=== PATIENT | female | born 1990 | race Caucasian/White ===

== ENCOUNTER 2018-12-27 07:20 | Inpatient (IN) | payer OTHER, SELFPAY ==
[2018-12-27 07:52] VITALS: BMI 27.8
[2018-12-27] MEDS: Lactated Ringers 500 ML 999 ML IV (08:20)
[2018-12-27 08:27] LABS: Absolute Neutrophil Count 8.8 X10^3/uL (2.0-7.7); Basophil# 0.02 X10^3/uL; Basophil% 0.2 % (0-1); Eosinophil# 0.06 X10^3/uL; Eosinophils% 0.5 % (0-5); Hematocrit 33.8 % (37-47); Hemoglobin 11.8 g/dL (12.0-15.0); Lymphocyte % 14.2 % (19-41); Mean Corp Hgb Conc 34.9 g/dL (32-36); Mean Corpuscular Hgb 32.1 pg (27.0-32.0); Mean Corpuscular Volume 91.8 fL (81-99); Mean Platelet Vol. 11.2 fl (6.2-12.0); Monocyte# 0.72 X10^3/uL; Monocyte% 6.4 % (0-10); NRBC Flagged by Analyzer 0 % (0-5); Neutrophil # 8.78 X10^3/uL (2.7-7.7); Neutrophil % 78.3 % (47-70); Platelet Count 156 K/mm3 (150-450); RBC Distribution Width CV 11.3 % (11.6-14.6); Red Blood Count 3.68 M/mm3 (4.2-5.4); White Blood Count 11.2 K/mm3 (4.4-11.0)
--- NOTE | 2018-12-27 08:27 | PCM.HP.OB ---
History Date of Admission: 12/27/18 Final JAY: 12/31/18 Gestational age: 39 Weeks and 3 Days History of this : This is a 28 year-old, G [], P [], at weeks gestational age. Medical History: Medical History (Last Updated 12/27/18 @ 08:28 by Waylon Da Silva) Anemia D64.9 H/O tooth extraction K08.409 Allergies aripiprazole [From Abilify] Allergy (Verified 12/27/18 07:55) Rash Smoking Status: Never smoker Alcohol: None Number of Fetus(es): 1 NST - FHR Rate Baby A Baseline: 140 Variability:: Moderate Accelerations:: 15 x 15 Decelerations:: None NST Reactive:: Yes Uterine Activity:: Q 2 minutes History Past Pregnancies: Past Pregnancies Delivery Date Name GA/Weeks Outcome Route Weight Gender Labor Length Anesthesia Delivery Location Provider FOB Labs: see [facility] prenatals Physical Exam General: Alert, Oriented x3 Abdomen: Soft, Non Tender, Non-Distended, Gravid Neurological: Cranial nerves II-XII grossly intact SAUSAGE GRINDER: Normal external genitalia Estimated gestational size: Appropriate for gestational size Presentation: Cephalic Cervix Dilation (cm): 4 Station: -2 Effacement (%): 80 Assessment/Plan This is a 28 year-old, G 1, P 0, at 39&3 weeks gestational age. ADmit to L&D Pain - epidural Expectant management GBS negative EFX - less than 4500g, patient with adequate pelvis Routine care
[2018-12-27] MEDS: fentaNYL-bupivacaine (epidural) 100 ML BAG EPIDURAL ×2 (08:49→13:36)
[2018-12-27] MEDS: Ondansetron 4 MG/2 ML Vial IV (09:28)
[2018-12-27] MEDS: Lactated Ringers 1,000 ML 50 ML IV ×2 (09:31→13:34)
[2018-12-27] MEDS: Oxytocin 30 units/NS 500 ml 30 UNITS/500 ML IV.SOLN 334 UNITS IV (16:02)
[2018-12-27] MEDS: Methylergonovine 0.2 MG/ML Ampul IM (16:08)
[2018-12-27] MEDS: miSOPROStol 200 MCG Tablet 1000 MCG RECTAL (16:11)
[2018-12-27] MEDS: Acetaminophen 500 MG Tablet 1000 MG PO (16:58)
--- NOTE | 2018-12-27 18:03 | PCM.OPRPT ---
Vaginal Delivery Maternal Presentation: Active Labor, Spontaneous Rupture of Membranes Amniotic Membrane Rupture Type: Spontaneous at home Amniotic Fluid Description: Clear Final JAY: 12/31/18 Gestational age: 39 Weeks and 3 Days Date of Procedure: 12/27/18 Pre-Operative Diagnosis: (1) Labor (2) SROM Post-Operative Diagnosis: (1) Labor (2) SROM (3) Isolated maternal fever Surgery/ Procedure Performed: Spontaneous Vaginal Delivery Type of Anesthesia: Epidural Description of Procedure: Patient prepped & draped when c/c/+2. Patient pushed to deliver head. head was gently guided to allow delivery of anterior and posterior shoulders. No excess traction placed on head. Body delivered & infant placed on maternal abdomen. 3VC clamped & cut in delayed fashion. Placenta delivered with gentle traction. Uterus was manually explored & confirmed no retained POC's. Pitocin, methergine & cytotec given to help obtain good uterine tone. Some increased bleeding was still noted. Cervix was examined & a cervical laceration noted at 4-5 o'clock. This was repaired with 3-0 vicryl for excellent hemostasis. Patient tolerated the procedure well. Presentation: HOLLY Placental Delivery Description: Expressed Placenta Disposition: [facility] Cord Vessel Description: 3 Vessels Cord Entanglement: None Estimated Blood Loss: 800ml A gender: Female - Brook; weight 8-6 (1 minute): 8 (5 minute): 9 Episiotomy Description: None Laceration: Cervical Extension/lac - and 2nd degree perineal - both repaired with 3-0 vicryl Medications given after delivery: IV Pitocin, IM Methergin - and rectal cytotec Complications: None
[2018-12-27 20:13] VITALS: BP 120/69; PULSE 82; RESP 18; TEMP 37.1
[2018-12-27] MEDS: Cefazolin 2 GM in 0.9% Normal Saline 100 ML IV (20:23)
[2018-12-27] MEDS: 0.9% Saline Lock 10 ML Syringe IV ×2 (20:23→21:44)
[2018-12-27 23:45] VITALS: BP 125/83; PULSE 84; RESP 18; TEMP 36.8
[2018-12-27] MEDS: Ibuprofen 600 MG Tablet PO (23:49)
[2018-12-28] MEDS: 0.9% Saline Lock 10 ML Syringe IV ×3 (03:53→06:21)
[2018-12-28] MEDS: Cefazolin 2 GM in 0.9% Normal Saline 100 ML IV (03:53)
[2018-12-28 04:05] VITALS: BP 100/52; PULSE 78; RESP 18; TEMP 36.9
--- NOTE | 2018-12-28 08:30 | PCM.PN.OB ---
Subjective: Some pain in the perineal area. Average lochia. No other complaints today. Denies shortness of breath, lightheadedness, fevers or chills. - Physical Exam General: Alert, Cooperative, No apparent distress Vital Signs Temp Pulse Resp BP 98.5 F 78 18 100/52 L 12/28/18 04:05 12/28/18 04:05 12/28/18 04:05 12/28/18 04:05 Oxygen Delivery Method Room Air Weight: 73.652 kg Body Mass Index (BMI) 27.8 Intake and Output for Last 24 Hours 12/26/18 12/27/18 12/28/18 23:59 23:59 23:59 Intake Total 1646.92 / 1646.92 216 / 216 Output Total 1300 / 1300 Balance 346.92 / 346.92 216 / 216 Laboratory Tests Past 24 Hrs 12/27/18 08:19 Blood Type A POSITIVE Antibody Screen NEGATIVE Medical Necessity - Tobacco Use Smoking Status: Never smoker Assessment/Plan day #1. Status post vaginal delivery with spike of fever after, EBL was 800 and there is a cervical laceration. Will check CBC with differential today. No further antibiotics indicated unless further fever spikes. Patient was afebrile overnight. Continue to work on breast-feeding today. Routine care for patient and . Likely discharge home tomorrow if both are doing well.
[2018-12-28 08:48] VITALS: BP 112/68; PULSE 84; RESP 16; TEMP 37.1
[2018-12-28 08:49] LABS: Absolute Lymphocyte Count 1.76 X10^3/uL (0.83-4.51); Absolute Neutrophil Count 12.8 X10^3/uL (2.0-7.7); Basophil# 0.02 X10^3/uL; Basophil% 0.1 % (0-1); Eosinophil# 0.02 X10^3/uL; Eosinophils% 0.1 % (0-5); Hematocrit 23.7 % (37-47); Hemoglobin 8.4 g/dL (12.0-15.0); Lymphocyte # 1.76 X10^3/ul (4.0); Lymphocyte % 10.9 % (19-41); Mean Corp Hgb Conc 35.4 g/dL (32-36); Mean Corpuscular Hgb 32.7 pg (27.0-32.0); Mean Corpuscular Volume 92.2 fL (81-99); Mean Platelet Vol. 12.1 fl (6.2-12.0); Monocyte# 1.55 X10^3/uL; Monocyte% 9.6 % (0-10); NRBC Flagged by Analyzer 0 % (0-5); Neutrophil # 12.81 X10^3/uL (2.7-7.7); Neutrophil % 78.9 % (47-70); POSITIVE DIFFERENTIAL YES; Platelet Count 112 K/mm3 (150-450); RBC Distribution Width CV 11.4 % (11.6-14.6); RBC Distribution Width SD 38.2 fl (35.1-43.9); Red Blood Count 2.57 M/mm3 (4.2-5.4); White Blood Count 16.2 K/mm3 (4.4-11.0)
[2018-12-28 08:54] LABS: Differential Indicated SCAN CRITERIA MET
[2018-12-28] MEDS: Senna/Docusate Sodium 1 Tablet PO (10:01)
[2018-12-28] MEDS: Dibucaine 30 GM Tube 1 APPLIC TOPICAL (10:03)
[2018-12-28 12:00] VITALS: BP 121/77; PULSE 98; RESP 16; TEMP 36.9
[2018-12-28] MEDS: Ibuprofen 600 MG Tablet PO ×2 (16:35→22:56)
[2018-12-28 18:00] VITALS: TEMP 37.1
[2018-12-28 20:31] VITALS: BP 112/71; PULSE 92; RESP 18; TEMP 36.8
[2018-12-29 02:06] VITALS: BP 118/76; PULSE 82; RESP 18; TEMP 36.8
[2018-12-29 07:18] LABS: Hematocrit 24.1 % (37-47); Hemoglobin 8.3 g/dL (12.0-15.0); Mean Corp Hgb Conc 34.4 g/dL (32-36); Mean Corpuscular Hgb 32.4 pg (27.0-32.0); Mean Corpuscular Volume 94.1 fL (81-99); Mean Platelet Vol. 11.4 fl (6.2-12.0); POSITIVE COUNT YES; Platelet Count 120 K/mm3 (150-450); RBC Distribution Width CV 11.8 % (11.6-14.6); RBC Distribution Width SD 39.8 fl (35.1-43.9); Red Blood Count 2.56 M/mm3 (4.2-5.4); Scan Indicated on CBC? Y/N NO; White Blood Count 11.3 K/mm3 (4.4-11.0)
--- NOTE | 2018-12-29 08:47 | PN.OBGYN_ITS ---
Subjective: Pain well controlled. Average lochia. No fevers or chills. - Physical Exam General: Alert, Cooperative, No apparent distress Abdomen: Soft, Non-Distended, Tender - Appropriately, fundus firm and appropriately tender Vital Signs Temp Pulse Resp BP 98.2 F 82 18 118/76 12/29/18 02:06 12/29/18 02:06 12/29/18 02:06 12/29/18 02:06 Oxygen Delivery Method Room Air Weight: 73.652 kg Body Mass Index (BMI) 27.8 Intake and Output for Last 24 Hours 12/27/18 12/28/18 12/29/18 23:59 23:59 23:59 Intake Total 1646.92 / 1646.92 216 / 216 Output Total 1300 / 1300 Balance 346.92 / 346.92 216 / 216 Laboratory Tests Past 24 Hrs 12/28/18 12/29/18 04:50 07:04 WBC 16.2 H 11.3 H RBC 2.57 L 2.56 L Hgb 8.4 L 8.3 L Hct 23.7 L 24.1 L MCV 92.2 94.1 MCH 32.7 H 32.4 H MCHC 35.4 34.4 RDW Std Deviation 38.2 39.8 RDW Coeff of Cassi 11.4 L 11.8 Plt Count 112 L 120 L MPV 12.1 H 11.4 Immature Gran % (Auto) 0.400 Neut % (Auto) 78.9 H Lymph % (Auto) 10.[address] [place] % (Auto) 9.6 Eos % (Auto) 0.1 Baso % (Auto) 0.1 Absolute Neuts (auto) 12.8 H Absolute Lymphs (auto) 1.76 Nucleated RBC % 0 Diff Path Review May foll Medical Necessity - Tobacco Use Smoking Status: Never smoker Assessment/Plan Sperm day #2 status post vaginal delivery. Patient and infant are doing well. Discharge home today with routine instructions and prescriptions.
--- NOTE | 2018-12-29 08:49 | DCINST_ITS ---
Discharge Diet: No Restrictions Discharge Activity: Return to Normal Activity, May not drive while taking narcotic pain medications., May Shower May resume sexual activity in: 4-6 weeks Additional Activity Instructions:: Nothing in the vagina for 4-6 weeks. You may return to work/school in 6 weeks. Call your doctor if your incision/area has: Continuous Slow Oozing, Sudden Increased Bleeding, Increased Pain/ Swelling, Increased Redness, Foul Smelling Discharge Additional Instructions: If you experience any of the following, contact your healthcare provider. * Bleeding that soaks a pad every hour for 2 hours * Fever 100.4 or higher * Unrelieved incision or abdominal pain * Swelling, redness, discharge or bleeding from your incision or episiotomy site * Your incision begins to separate * Problems urinating (including inability to urinate or burning while urinating). * Visual changes * Severe headache * Flu-like symptoms * Pain or redness in one of both of your breasts * Pain, warmth, tenderness or swelling in your legs, especially the calf area * Frequent nausea and vomiting * Symptoms of depression or anxiety If you experience any of the following, call 911 or go to the nearest Emergency Room. * Chest pain * Problems breathing * Seizure activity * Partial or complete paralysis of a body part, slurred speech, weakness or drooping of the face, or a sudden inability to walk or hold your balance Allergies/Adverse Reactions: Allergies aripiprazole [From Abilify] Allergy (Verified 12/27/18 07:55) Rash Medications to take at Discharge Ibuprofen [Motrin] 600 mg PO Q6H PRN #60 tab 12/29/18 The following prescriptions were given: Ibuprofen [Motrin] 600 mg PO Q6H PRN #60 tab PRN Reason: Pain Transmission Status: Pending to [facility] Please Follow Up With: Waylon Da Silva - [phone] When: Call to make an appointment with your provider's office in 1-2 and 6 weeks or as needed Primary Care Physician: Mickey Coleman MD [Primary Care Provider] - Test Results: Test results from this visit will be discussed in further detail at your follow- up appointment, if applicable.
--- NOTE | 2018-12-29 08:49 | PCM.DCVAG ---
Discharge Diet: No Restrictions Discharge Activity: Return to Normal Activity, May not drive while taking narcotic pain medications., May Shower May resume sexual activity in: 4-6 weeks Additional Activity Instructions:: Nothing in the vagina for 4-6 weeks. You may return to work/school in 6 weeks. Call your doctor if your incision/area has: Continuous Slow Oozing, Sudden Increased Bleeding, Increased Pain/ Swelling, Increased Redness, Foul Smelling Discharge Additional Instructions: If you experience any of the following, contact your healthcare provider. Bleeding that soaks a pad every hour for 2 hours Fever 100.4 or higher Unrelieved incision or abdominal pain Swelling, redness, discharge or bleeding from your incision or episiotomy site Your incision begins to separate Problems urinating (including inability to urinate or burning while urinating). Visual changes Severe headache Flu-like symptoms Pain or redness in one of both of your breasts Pain, warmth, tenderness or swelling in your legs, especially the calf area Frequent nausea and vomiting Symptoms of depression or anxiety If you experience any of the following, call 911 or go to the nearest Emergency Room. Chest pain Problems breathing Seizure activity Partial or complete paralysis of a body part, slurred speech, weakness or drooping of the face, or a sudden inability to walk or hold your balance Allergies/Adverse Reactions: Allergies aripiprazole [From Abilify] Allergy (Verified 12/27/18 07:55) Rash Medications to take at Discharge Ibuprofen [Motrin] 600 mg PO Q6H PRN #60 tab 12/29/18 The following prescriptions were given: Ibuprofen [Motrin] 600 mg PO Q6H PRN #60 tab PRN Reason: Pain Transmission Status: Pending to [facility] Please Follow Up With: Waylon Da Silva - [phone] When: Call to make an appointment with your provider's office in 1-2 and 6 weeks or as needed Primary Care Physician: Mickey Coleman MD [Primary Care Provider] - Test Results: Test results from this visit will be discussed in further detail at your follow-up appointment, if applicable.
[2018-12-29 09:00] VITALS: BP 117/79; PULSE 86; RESP 20; TEMP 36.1; O2SAT 99
[2018-12-29] MEDS: Ibuprofen 600 MG Tablet PO (09:32)
[2018-12-29] MEDS: Senna/Docusate Sodium 1 Tablet PO (09:33)
[2019-01-01 12:15] LABS: Pathologist Review Reviewed
== END 2018-12-29 11:45 | disposition home or self-care (01) | DRG 806 ==
PROVIDERS: Obstetrics & Gynecology; Admitting Provider Obstetrics & Gynecology; Family Provider Family Medicine; PCP Family Medicine; Referring Provider Obstetrics & Gynecology; Visit Provider Obstetrics & Gynecology
DX: O75.2 Pyrexia during labor, not elsewhere classified (principal); O71.3 Obstetric laceration of cervix; Z37.0 Single live birth; Z3A.39 39 weeks gestation of pregnancy; O70.1 Second degree perineal laceration during delivery
CPT/HCPCS: 59025; 59050; 85025; 85027; 86850; 86900; 86901; 99218; J7120; A4216; G0378; J2405

== ENCOUNTER 2021-07-23 07:00 | Inpatient (IN) | payer OTHER, SELFPAY ==
[2021-07-23] VITALS (39 sets, daily range): BP systolic 110–138; BP diastolic 56–88; PULSE 72–103; TEMP 36.9–37.5; O2SAT 94–100; BMI 27.1
[2021-07-23] MEDS: Lactated Ringers 1,000 ML 50 ML IV (07:45)
[2021-07-23 08:01] LABS: Absolute Lymphocyte Count 1.82 X10^3/uL (0.83-4.51); Absolute Neutrophil Count 5.3 X10^3/uL (2.0-7.7); Basophil# 0.02 X10^3/uL; Basophil% 0.3 % (0-1); Eosinophil# 0.06 X10^3/uL; Eosinophils% 0.8 % (0-5); Hematocrit 31.6 % (37-47); Hemoglobin 10.6 g/dL (12.0-15.0); Lymphocyte # 1.82 X10^3/ul (0.83-4.51); Lymphocyte % 23.4 % (19-41); Mean Corp Hgb Conc 33.5 g/dL (32-36); Mean Corpuscular Hgb 31.2 pg (27.0-32.0); Mean Corpuscular Volume 92.9 fL (81-99); Mean Platelet Vol. 11.2 fl (6.2-12.0); Monocyte# 0.52 X10^3/uL; Monocyte% 6.7 % (0-10); NRBC Flagged by Analyzer 0 % (0-5); Neutrophil # 5.34 X10^3/uL (2.7-7.7); Neutrophil % 68.4 % (47-70); Platelet Count 166 K/mm3 (150-450); RBC Distribution Width CV 12.3 % (11.6-14.6); RBC Distribution Width SD 41.3 fl (35.1-43.9); White Blood Count 7.8 K/mm3 (4.4-11.0)
[2021-07-23] MEDS: Oxytocin 30 units/NS 500 ml 30 UNITS/500 ML IV.SOLN IV (08:06)
[2021-07-23] MEDS: Lactated Ringers 500 ML 999 ML IV ×2 (12:52→17:14)
--- NOTE | 2021-07-23 12:56 | PCM.HP.OB ---
HPI - General General Date of Admission: 07/23/21 HPI Narrative PARISH ALARCON, is a 31 F at 39w5d who presents for scheduled elective IOL. Maternal Data Information JAY Calculator Estimated Delivery Date Method Current WG Current Estimate 07/25/21 LMP (Certain) 39w 5d PFSH PFSH Medical History (Updated 07/23/21 @ 12:[address] Ange Villa, DO) Anemia Home Medications vit [id number]-dha [ + DHA] 1 pkg PO DAILY 07/23/21 [History Last Taken Unknown] Allergy/AdvReac Type Severity Reaction Status Date / Time aripiprazole [From Abilify] Allergy Rash Verified 07/23/21 07:32 Surgical History H/O tooth extraction Social History Smoking Status: Never smoker History Elective abortions Hx Para 1 Spontaneous abortions Hx # Term Pregnancies Ectopic pregnancies Hx # Pregnancies Multiple births # of living children NST FHR Rate Baby A FHR Category:: Category I Vital Signs Vital Signs Vital Signs: 07/23/21 08:09 07/23/21 08:10 07/23/21 09:21 Temperature 98.4 F 98.4 F Temperature Source Temporal Pulse Rate 82 84 Blood Pressure 121/79 H 133/78 H BP Systolic 121 133 BP Diastolic 79 78 07/23/21 10:02 07/23/21 11:01 07/23/21 11:02 Temperature 99.0 F Temperature Source Temporal Pulse Rate 72 72 Blood Pressure 127/80 H 135/78 H BP Systolic 127 135 BP Diastolic 80 78 07/23/21 12:04 Temperature Temperature Source Pulse Rate 76 Blood Pressure 112/67 BP Systolic 112 BP Diastolic 67 Weight Weight: 163 lb 2.273 oz Body Mass Index (BMI) 27.1 Labs Labs Labs: Blood Type A POSITIVE Antibody Screen NEGATIVE Hct 31.6 % (37-47) L Hgb 10.6 g/dL (12.0-15.0) L Neisseria gonorrhoeae DNA (KARLIE) Negative (Negative) Rhogam given: No Assessment & Plan (1) 39 weeks gestation of : PLAN: - R/b/a of an elective IOL were discussed with pt in the office and she desired an elective induction - Epidural for pain control - GBS neg - EFW expected to be < 3500 g and pelvis adequate - Pit gtt - Anticipate vaginal delivery (2) Elective induction of labor planned:
--- NOTE | 2021-07-23 13:00 | PCM.PN.BLA ---
Progress Note At bedside to check on pt. Getting uncomfortable with ctx's. Plans for epidural. Cvx /-1, head well applied. AROM performed in usual fashion with return of a large amount of clear fluid. Category 1 tracing.
[2021-07-23] MEDS: fentaNYL-bupivacaine (epidural) 100 ML BAG EPIDURAL (14:05)
[2021-07-23] MEDS: Oxytocin 30 units/NS 500 ml 30 UNITS/500 ML IV.SOLN 334 UNITS IV (17:50)
--- NOTE | 2021-07-23 18:08 | PCM.OPRPT ---
Problems Associated Problem List Diagnoses (1) 39 weeks gestation of : (2) Vaginal delivery: (3) Elective induction of labor planned: Report of Operation Date of Procedure: 07/23/21 Pre-Operative Diagnosis: 39 week gestation, elective induction of labor Post-Operative Diagnosis: As above Surgery/Procedure Performed:: Description of Surgical Findings:: VFI delivered in HOLLY position. Normal placenta and 3 VC. No perineal lacerations. Surgeon: Ange Villa Type of Anesthesia: Epidural Special Medications: None Specimen's removed: Placenta Drains: [place] Estimated Blood Loss (mL): 50 Fluids Replaced: n/a Description of Procedure: Complete and pushing. Head of delivered in right occiput anterior position. The anterior shoulder was delivered with gentle downward traction, followed by the posterior shoulder and body of the . A viable female was delivered without any force or delay. The vigorous infant was placed on the maternal abdomen. The cord was clamped and cut after a 60 sec delay. The placenta was delivered with fundal massage. The placenta was noted to be normal-appearing and intact with a three-vessel cord. Uterus was explored x1. Fundus firm and bleeding hemostatic. No lacerations noted. Sponge count was correct. Grafts/Implants Used: None Complications None Admit VTE Documentation VTE Present on Admission: No
[2021-07-23] MEDS: Ibuprofen 600 MG Tablet PO (23:24)
[2021-07-24 00:25] VITALS: BP 108/67; PULSE 84; RESP 16; TEMP 36.9
[2021-07-24 04:45] VITALS: BP 120/75; PULSE 76; RESP 16; TEMP 36.4
[2021-07-24] MEDS: Ibuprofen 600 MG Tablet PO ×2 (06:22→16:32)
[2021-07-24 08:11] VITALS: BP 117/70; PULSE 83; RESP 16; TEMP 36.5; O2SAT 98
[2021-07-24 11:40] VITALS: BP 126/85; PULSE 82; RESP 16; TEMP 36.4; O2SAT 97
--- NOTE | 2021-07-24 12:02 | PCM.PN.OB ---
Subjective Subjective Pt is doing well. Pain controlled. Ambulating and voiding without difficulty. Eating well. Lochia normal. without complaints. Desires discharge. Objective Data Objective Data Vital Signs: Vital Signs Temp Pulse Resp BP Pulse Ox 97.6 F L 82 16 126/85 H 97 07/24/21 11:40 07/24/21 11:40 07/24/21 11:40 07/24/21 11:40 07/24/21 11:40 Oxygen Delivery Method Room Air Weight: 163 lb 2.273 oz Body Mass Index (BMI) 27.1 Intake & Output: Intake and Output for Last 24 Hours 07/22/21 07/23/21 07/24/21 23:59 23:59 23:59 Intake Total 2589.34 / 2589.34 Output Total 1250 / 1250 1200 / 1200 Balance 1339.34 / 1339.34 -1200 / -1200 Lab / Micro Data Result Diagrams: 07/23/21 07:45 Micro: Microbiology 07/23/21 07:45 Nasal Secretion SARS-CoV-2 Antigen (Rapid) - Final Physical Exam Const alert General Appearance: comfortable Resp normal respiratory effort GI soft to palpation, non-tender and non-distended GI Narrative: FF@U-1 Extremity normal to inspection and no calf tenderness Assessment & Plan (1) Vaginal delivery: PLAN: PPD#1 doing well. Desires discharge. Discharge instructions reviewed.
--- NOTE | 2021-07-24 12:20 | PCM.DC ---
Discharge Instructions Diet Discharge Diet: No restrictions Activity Discharge Activity: May Shower May resume sexual activity in: 6 weeks Weight Bearing Status: Weight bearing as tolerated Dressing / Incision Call your doctor if you observe: Fever of 101 or Higher, Coldness, Increased Pain, Numbness or Tingling, Change in Color, Inability to urinate, Inability to have a bowel movement, Using more than 1 pad per hour, Shortness of breath, Dizziness, Fainting spells, Swelling in the ankles, Chest pain, Increased palpitations (irregular heartbeat), Calf discomfort and Uncontrolled pain Follow Up Care When: 1-2 weeks for early visit if desired (can be virtual) 6 week visit Test Results: Test results from this visit will be discussed in further detail at your follow-up appointment, if applicable. Discharge Plan Admission Admit Date/Time: 07/23/21 07:00 Primary Reason for Your Visit: Delivery Attending Provider: Ange Villa Primary Care Provider: Mickey Coleman Discharge Orders/Prescriptions Prescriptions: No Action + DHA 28 mg iron- 975 mcg-200 mg Combo Pack 1 pkg PO DAILY RF: 0 Referrals / Follow Up: Mickey Coleman MD [Primary Care Provider] - Disposition Disposition (needs filled in before D/C Order can be placed): Home, Self Care
[2021-07-24 16:20] VITALS: BP 125/89; PULSE 78; RESP 16; TEMP 36.4; O2SAT 97
[2021-07-24 19:42] VITALS: BP 114/78; PULSE 96; RESP 16; TEMP 37; O2SAT 97
== END 2021-07-24 20:30 | disposition home or self-care (01) | DRG 807 ==
PROVIDERS: Admitting Provider Obstetrics & Gynecology; PCP Family Medicine; Referring Provider Obstetrics & Gynecology; Visit Provider Obstetrics & Gynecology
DX: O80 Encounter for full-term uncomplicated delivery (principal); Z37.0 Single live birth; Z3A.39 39 weeks gestation of pregnancy
CPT/HCPCS: 59025; 59050; 85025; 86850; 86900; 86901; 87426; 99218; J7120; G0378

== ENCOUNTER 2023-05-17 04:14 | Inpatient (IN) | payer OTHER, SELFPAY ==
[2023-05-17] VITALS (20 sets, daily range): BP systolic 99–133; BP diastolic 58–88; PULSE 80–96; RESP 15–16; TEMP 36.4–37.4; O2SAT 92–99; BMI 26.6
[2023-05-17] MEDS: LACTATED RINGERS 500 ML 999 ML IV (04:45)
[2023-05-17] MEDS: Lactated Ringers 1,000 ML 50 ML IV (04:45)
--- OUTSIDE RECORDS SUMMARY | 2023-05-17 05:01 | XMS RPT_ITS | CCD ---
Author Name Unknown Address [address] [place] [address] Organization [facility] Care Team Providers Care Sales Support Assistant Name Role Phone Unavailable Primary Care Provider Unavailabl e FERCHO, BONNIE Referring Unavailable PLOTTS, BONNIE Attending Unavailable BEATRICE, ORLANDO L Referring Unavailable BEATRICE, ORLANDO L Referring Unavailable PLOTTS, BONNIE Attending Unavailable ANNEL, SMILEY Attending Unavailable ANNEL, SMILEY Referring Unavailable BEATRICE, ORLANDO L Attending Unavailable PLOTTS, BONNIE Referring Unavailable PLOTTS, BONNIE Referring Unavailable PLOTTS, BONNIE Attending Unavailable PLOTTS, BONNIE Attending Unavailable TRENA HARGROVE Attending Unavailable JORGE TRINIDAD Attending Unavail able TRENA HARGROVE Referring Unavailable DELVIN, TRENA Attending Unavailable BEATRICE, ORLANDO L Attending Unavailable DONY PARISI Attending Unavailable SHIRA, SHELIA Attending Unavailable SHIRA, SHELIA Referring Unavailable ANNEL, SMILEY Attending Unavailable Medications Completed/Discontinued Medications Medication Drug Class(es) Dates Sig (Normalized) Sig (Original) norethindrone 0.35 mg oral tablet (3 sources) Start: 09-06-2021 End: 09-30-2022 take 1 tablet by mouth once daily Norethindrone, Contraceptive, (ORTHO MICRONOR) 0.35 mg tablet Indications: Encounter for initial prescription of contraceptive pills Take 1 tablet by mouth once daily. 28 tablet 6 09/06/2021 09/30/2022 Discontinued Problems Active Problems Problem Classification Problem Date Documented Date Episodic/Chronic Contraceptive and procreative management (5 sources) Patient encounter status; Translations: [Encounter for initial prescription of contraceptive pills] Episodic Immunizations and screening for infectious disease (2 sources) Encounter for immunization; Translations: [Encounter for screening for human papillomavirus (HPV)] Onset: 09-30-2022 Episodic Menstrual disorders (2 sources) Secondary amenorrhea; Translations: [Secondary amenorrhea] Onset: 03-06-2018 03-06-2018 Chronic Other complications of (4 sources) Anemia in mother complicating , childbirth AND/OR puerperium; Translations: [Anemia complicating , third trimester] Onset: 02-24-2023 02-24-2023 Chronic Other complications of (1 source) Anemia of ; Translations: [Anemia complicating , third trimester] 03-24-2023 Chronic Other complications of (1 source) Anemia complicating , third trimester; Translations: [Anemia complicating , third trimester] Onset: 04-21-2023 Chronic Other diseases of kidney and ureters (2 sources) Caliectasis; Translations: [Other specified disorders of kidney and ureter] Onset: 03-09-2023 03-09-2023 Chronic Other diseases of kidney and ureters (1 source) Other specified disorders of kidney and ureter; 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] Onset: 03-09-2023 Chronic Other and delivery including normal (20 sources) state; Translations: [Encounter for routine follow-up] Onset: 06-07-2021 Episodic Residual codes; unclassified (1 source) Gestation period, 13 weeks; Translations: [13 weeks gestation of ] Episodic Residual codes; unclassified (2 sources) Gestation period, 17 weeks; Translations: [17 weeks gestation of ] 12-02-2022 Episodic Residual codes; unclassified (1 source) ultrasound scan abnormal; Translations: [Pyelectasis of fetus on ultrasound] 12-22-2022 Episodic Residual codes; unclassified (1 source) Gestation period, 19 weeks; Translations: [19 weeks gestation of ] 12-22-2022 Episodic Residual codes; unclassified (1 source) Gestation period, 23 weeks; Translations: [23 weeks gestation of ] 01-19-2023 Episodic Residual codes; unclassified (1 source) Gestation period, 28 weeks; Translations: [28 weeks gestation of ] 02-23-2023 Episodic Residual codes; unclassified (1 source) Gestation period, 32 weeks; Translations: [32 weeks gestation of ] 03-24-2023 Episodic Residual codes; unclassified (1 source) Gestation period, 34 weeks; Translations: [34 weeks gestation of ] 04-07-2023 Episodic Residual codes; unclassified (1 source) 30 weeks gestation of ; Translations: [30 weeks gestation of ] Onset: 03-09-2023 Episodic Residual codes; unclassified (1 source) 23 weeks gestation of ; Translations: [23 weeks gestation of ] Onset: 02-23-2023 Episodic Past or Other Problems Problem Classification Problem Date Documented Da te Episodic/Chronic Other screening for suspected conditions (not mental disorders or infectious disease) (1 source) Encounter for screening for malignant neoplasm of cervix; Translations: [Encounter for screening for malignant neoplasm of cervix] Onset: 09-30-2022 Episodic Residual codes; unclassified (12 sources) Family history of long QT syndrome; Translations: [Family history of ischemic heart disease and other diseases of the circulatory system] Onset: 05-31-2018 05-31-2018 Episodic Residual codes; unclassified (1 source) 20 weeks gestation of ; Translations: [20 weeks gestation of ] Onset: 12-22-2022 Episodic Residual codes; unclassified (1 source) 17 weeks gestation of ; Translations: [17 weeks gestation of ] Onset: 12-22-2022 Episodic Residual codes; unclassified (1 source) 13 weeks gestation of ; Translations: [13 weeks gestation of ] Onset: 11-04-2022 Episodic Results Test Name Value Interpretation Reference Range Facil ity Vital Signs Date Time Vital Sign Value Performing Clinician Guerita acevedo 04-07-2023 15:10-0500 Body weight 70.31 kg Bonnie Brantley EXHIBIT ELECTRICIAN.CNM Work Phone: [facility] 04-07-2023 15:10-0500 Diastolic blood pressure 64 mm[Hg] Bonnie Brantley EXHIBIT ELECTRICIAN.CNM Work Phone: [facility] 04-07-2023 15:10-0500 Systolic blood pressure 108 mm[Hg] Bonnie Brantley EXHIBIT ELECTRICIAN.CNM Work Phone: [facility] 03-24-2023 13:15-0500 Body weight 69.67 kg Smiley Villa MD Work Phone: [facility] 03-24-2023 13:15-0500 Diastolic blood pressure 62 mm[Hg] Smiley Villa MD Work Phone: [facility] 03-24-2023 13:15-0500 Systolic blood pressure 104 mm[Hg] Smiley Villa MD Work Phone: [facility] 02-23-2023 11:12-0400 Body weight 66.22 kg Bonnie Plotts EXHIBIT ELECTRICIAN.CNM Work Phone: [facility] 02-23-2023 11:12-0400 Diastolic blood pressure 62 mm[Hg] Bonnie Plotts EXHIBIT ELECTRICIAN.CNM Work Phone: [facility] 02-23-2023 11:12-0400 Systolic blood pressure 100 mm[Hg] Bonnie Plotts EXHIBIT ELECTRICIAN.CNM Work Phone: [facility] 01-19-2023 11:04-0400 Body weight 64.86 kg Orlando Barron MD Work Phone: [facility] 01-19-2023 11:04-0400 Diastolic blood pressure 60 mm[Hg] Orlando Barron MD Work Phone: [facility] 01-19-2023 11:04-0400 Systolic blood pressure 102 mm[Hg] Orlando Barron MD Work Phone: [facility] 12-02-2022 11:04-0400 Body weight 60.33 kg Bonnie Plotts EXHIBIT ELECTRICIAN.CNM Work Phone: [facility] 12-02-2022 11:04-0400 Diastolic blood pressure 60 mm[Hg] Bonnie Plotts EXHIBIT ELECTRICIAN.CNM Work Phone: [facility] 12-02-2022 11:04-0400 Systolic blood pressure 108 mm[Hg] Bonnie Plotts EXHIBIT ELECTRICIAN.CNM Work Phone: [facility] 11-04-2022 13:31-0400 Body weight 59.15 kg Jorge Scott MD Work Phone: [facility] 11-04-2022 13:31-0400 Diastolic blood pressure 60 mm[Hg] Jorge Scott MD Work Phone: [facility] 11-04-2022 13:31-0400 Systolic blood pressure 100 mm[Hg] Jorge Scott MD Work Phone: [facility] 09-30-2022 14:19-0400 Body height 162.6 cm Trena Hargrove MD Work Phone: [facility] 09-30-2022 14:19-0400 Body weight 56.29 kg Trena Hargrove MD Work Phone: [facility] 09-30-2022 14:19-0400 Diastolic blood pressure 72 mm[Hg] Trena Hargrove MD Work Phone: [facility] 09-30-2022 14:19-0400 Systolic blood pressure 118 mm[Hg] Trena Hargrove MD Work Phone: [facility] 09-06-2021 08:39-0400 Body weight 63.69 kg Smiley Villa MD Work Phone: [facility] 09-06-2021 08:39-0400 Diastolic blood pressure 76 mm[Hg] Smiley Villa MD Work Phone: [facility] 09-06-2021 08:39-0400 Systolic blood pressure 120 mm[Hg] Smiley Villa MD Work Phone: [facility] Encounters Encounter Date Encounter Type Care Provider Facility Start: 05-11-2023 End: 05-11-2023 ambulatory ORLANDO BARRON Facility:[facility] Start: 05-04-2023 End: 05-04-2023 ambulatory TRENA HARGROVE Facility:[facility] Start: 04-26-2023 End: 04-26-2023 ambulatory DONY PARISI Facility:[facility] Start: 04-21-2023 End: 04-21-2023 ambulatory BONNIE BRANTLEY Facility:[facility] Start: 04-21-2023 End: 04-22-2023 ambulatory BONNIE BRANTLEY Facility:[facility] Start: 04-07-2023 End: 04-07-2023 ambulatory BONNIE BRANTLEY Facility:[facility] Start: 04-07-2023 End: 04-07-2023 Patient encounter procedure Bonnie Brantley APRN.MALISSA Work Phone: OB/Gynecology Procedures Date Procedure Procedure Detail Performing Clinician Start: 04-07-2023 URINE OB DIP B/O Landon Brantley APRN.CNM Work Phone: Start: 03-24-2023 URINE OB DIP B/O Smiley reyes MD Work Phone: Start: 02-23-2023 URINE OB DIP B/O Landon Brantley EXHIBIT ELECTRICIAN.CNM Work Phone: Start: 02-23-2023 Us preg uterus after 1st trimest 05/01 gestation Bonnie Brantley EXHIBIT ELECTRICIAN.CNM Work Phone: Start: 01-19-2023 URINE OB DIP B/O Harvey Barron MD Work Phone: Start: 12-22-2022 Us preg uterus after 1st trimest 05/01 gestation Bonnie Brantley APRN.CNM Work Phone: Start: 11-04-2022 Antibody screen GIANNA Farheen FERCHO Plan of Treatment Date Care Activity Detail Author Start: 03-09-2033 Urine microalbumin profile DTaP,Tdap,Td Vaccine (9 - Td or Tdap) [facility] Start: 04-29-2031 Urine microalbumin profile [facility] Start: 10-01-2027 HPV TESTING HPV TESTING [facility] Start: 10-01-2027 PAP TESTING PAP TESTING [facility] Start: 02-06-2024 PAP TESTING PAP TESTING [facility] Start: 04-07-2023 End: 07-07-2023 CBC panel - Blood by Automated count CBC Lab Routine Anemia complicating , third trimester Expected: 04/07/2023, Expires: 07/07/2023 [facility] Work Phone: Immunizations Immunization Date Immunization Notes Care Provider [facility] 03-09-2023 tetanus toxoid, redu albertina diphtheria toxoid, and acellular pertussis vaccine, adsorbed Smiley Villa MD Work Phone: [facility] 04-29-2021 tetanus toxoid, redu albertina diphtheria toxoid, and acellular pertussis vaccine, adsorbed Smiley Villa MD Work Phone: [facility] 02-11-2021 influenza, injectabl e, quadrivalent, contains preservative Smiley Villa MD Work Phone: [facility] 02-11-2021 influenza virus vacc ine, unspecified formulation Orlando Barron MD Work Phone: [facility] 01-26-2021 influenza, seasonal, injectable Orlando Barron MD Work Phone: [facility] 02-15-2019 Influenza, injectabl e, Madin Butler Canine Kidney, preservative free, quadrivalent Orlando Barron MD Work Phone: [facility] 02-14-2019 influenza virus vacc ine, unspecified formulation Orlando Barron MD Work Phone: [facility] 10-15-2018 tetanus toxoid, redu albertina diphtheria toxoid, and acellular pertussis vaccine, adsorbed Smiley Villa MD Work Phone: [facility] Work Phone: 06-16-2008 human papilloma viru s vaccine, quadrivalent Orlando Barron MD Work Phone: [facility] 02-06-2008 human papilloma viru s vaccine, quadrivalent Orlando Barron MD Work Phone: [facility] 12-12-2007 human papilloma viru s vaccine, quadrivalent Orlando Barron MD Work Phone: [facility] 12-12-2007 meningococcal polysaccharide (groups A, C, Y and W-135) diphtheria toxoid conjugate vaccine (MCV4P) Orlando Barron MD Work Phone: [facility] 12-12-2007 varicella virus vaccine Catia Barron MD Work Phone: [facility] 06-03-2004 hepatitis B vaccine, pediatric or pediatric/adolescent dosage Orlando Barron MD Work Phone: [facility] 12-12-2003 hepatitis B vaccine, pediatric or pediatric/adolescent dosage Orlando Barron MD Work Phone: [facility] 12-12-2003 TD(adult) unspecifie d formulation Orlando Barron MD Work Phone: [facility] 11-07-2003 hepatitis B vaccine, pediatric or pediatric/adolescent dosage Orlando Barron MD Work Phone: [facility] 04-30-1999 haemophilus influenz ae type b vaccine, conjugate unspecified formulation Orlando Barron MD Work Phone: [facility] 07-04-1996 diphtheria, tetanus toxoids and acellular pertussis vaccine, unspecified formulation Orlando Barron MD Work Phone: [facility] 07-04-1996 measles, mumps and rubella virus vaccine Orlando Barron MD Work Phone: [facility] 07-04-1996 poliovirus vaccine, unspecified formulation Orlando Barron MD Work Phone: [facility] 07-21-1995 varicella virus vaccine Catia Barron MD Work Phone: [facility] 06-05-1992 diphtheria, tetanus toxoids and acellular pertussis vaccine, unspecified formulation Orlando Barron MD Work Phone: [facility] 06-05-1992 haemophilus influenz ae type b vaccine, conjugate unspecified formulation Orlando Barron MD Work Phone: [facility] 06-05-1992 measles, mumps and rubella virus vaccine Orlando Barron MD Work Phone: [facility] 06-05-1992 poliovirus vaccine, unspecified formulation Orlando Barron MD Work Phone: [facility] 1991 diphtheria, tetanus toxoids and acellular pertussis vaccine, unspecified formulation Orlando Barron MD Work Phone: [facility] 1991 haemophilus influenz ae type b vaccine, conjugate unspecified formulation Orlando Barron MD Work Phone: [facility] 1991 diphtheria, tetanus toxoids and acellular pertussis vaccine, unspecified formulation Orlando Barron MD Work Phone: [facility] 1991 haemophilus influenz ae type b vaccine, conjugate unspecified formulation Orlando Barron MD Work Phone: [facility] 1991 poliovirus vaccine, unspecified formulation Orlando Barron MD Work Phone: [facility] 1991 diphtheria, tetanus toxoids and acellular pertussis vaccine, unspecified formulation Orlando Barron MD Work Phone: [facility] 1991 diphtheria, tetanus toxoids and pertussis vaccine Orlando Barron MD Work Phone: [facility] 1991 haemophilus influenz ae type b vaccine, conjugate unspecified formulation Orlando Barron MD Work Phone: [facility] 1991 poliovirus vaccine, unspecified formulation Orlando Barron MD Work Phone: [facility] Payers Date Payer Category Payer Private Health Insurance [employer] PPO [id number] 2020-Present [phone] [address] [place] [address] PPO [id number] 2020 Private Health Insurance [employer] PPO [id number] 2020-Present [phone] [address] [place] [address] O [id number] 2020 Private Health Insurance [id number] Social History Date Type Detail Facility Start: 03-01-2018 End: 09-30-2022 Tobacco smoking status NHIS Never smoked tobacco [facility] Start: 09-06-2021 Alcohol intake Current drinke r of alcohol (finding) [facility] Start: 05-31-2018 History SDOH Alcohol Comment socially, not while [facility] Start: 12-24-2020 Education 17 [facility] Start: 1990 Sex Assigned At Not on file C [facility] Start: 08-21-2021 End: 08-31-2021 Exposure to SARS-CoV-2 (event) Not sure [facility] Start: 03-01-2018 End: 09-30-2022 Tobacco use and exposure Smokeless tobacco non-user [facility] Start: 09-29-2022 End: 04-07-2023 Alcohol intake Ex-drinker (finding) [facility] Start: 08-13-2022 [facility] Start: 09-29-2022 End: 12-02-2022 History of Social function [facility] Start: 09-29-2022 End: 12-02-2022 Tobacco use panel [facility] National Score (1-10 0), lower number is lower risk 51 [facility] Goals Date Patient Goal Desired Activity /State Personal health goal Clinical Notes 03-06-2018 to 04-07-2023 Quick Notes - Bonnie Brantley APRN.CNM - 04/07/2023 3:31 PM ESTPatient InstructionsPrenatal Quick Notes - Smiley Villa MD - 03/24/2023 1:29 PM ESTPatient InstructionsPatient Instructions Note Date & Type Note Facility 04-07-2023 Miscellaneous Notes Maddie ALARCON is a 33 year old female who presents at 34w1d for a routine visit. Good movement. Denies headache, visual changes, chest pain, shortness of breath, vaginal bleeding, leakage of fluid, or dysuria. Feeling well, no complaints. Size equal to dates. 30 lbs TWG. PTL precautions reviewed. RTC in 2 weeks Bonnie Brantley APRN.CNM documented in this encounter [facility] 04-07-2023 Instructions Ovidio Dozier Cma - 04/07/2023 3:08 PM EST SEQUENTIAL SCREENINGS The [facility] offers sequential screenings for women who are interested in screenings for chromosomal abnormalities and certain defects during a . The sequential screen combines ultrasound and blood tests to determine the risk of chromosomal abnormalities, including Down's Syndrome (Trisomy 21) and Trisomy 18, as well as open neural tube defects including spina bifida. Ultrasound examination is performed between 11 weeks and 13 weeks gestational age. Blood tests are drawn after the ultrasound and again later in the between 15 and 21 weeks gestational age. Please let your physician know if you are interested in this testing. It will require an appointment with our termite technician. This is not an ultrasound performed by a physician in our office during a routine visit. SIGNS AND SYMPTOMS OF LABOR 1. Contractions every 10 minutes or more often 2. Clear, pink, or brownish fluid (water) leaking from vagina 3. Feeling that baby is pushing down, pressure 4. Low, dull backache 5. Cramps that feel like a period 6. Cramps with or without diarrhea If you notice any of the above symptoms, contact our office at [phone] and ask to speak with a nurse. After hours, you can call doctors registry at [phone] OR call [facility] at [phone] and ask to have the doctor spa consultant paged. If you consider this an emergency, dial 9-1-4 or go to your nearest emergency department. NEED HELP? Are you dealing with a violent or abusive relationship? Are you a victim of rape or sexual assult? Call [facility] ([place]) 24 hour Crisis Hotline: 488.134.8990 or 880-328-2946. MANUAL Your Guide to a Healthy manual is now on-line. Visit [email or web address] nancyGuide to download your free copy documented in this encounter [facility] 03-24-2023 Miscellaneous Notes SW- Pt doing well. No ctx, pain, vb, lof. Good FM PE: Gen- NAD, well appearing See flowsheet A/p 32 wk gestation - Anemia: Cont iron and repeat CBC reviewed - Provider had to leave after discussing anemia for a delivery on L&D Smiley Villa DO documented in this encounter [facility] 03-24-2023 Instructions Apryl Arboleda MA - 03/24/2023 1:11 PM EST SEQUENTIAL SCREENINGS The [facility] offers sequential screenings for women who are interested in screenings for chromosomal abnormalities and certain defects during a . The sequential screen combines ultrasound and blood tests to determine the risk of chromosomal abnormalities, including Down's Syndrome (Trisomy 21) and Trisomy 18, as well as open neural tube defects including spina bifida. Ultrasound examination is performed between 11 weeks and 13 weeks gestational age. Blood tests are drawn after the ultrasound and again later in the between 15 and 21 weeks gestational age. Please let your physician know if you are interested in this testing. It will require an appointment with our termite technician. This is not an ultrasound performed by a physician in our office during a routine visit. SIGNS AND SYMPTOMS OF LABOR 1. Contractions every 10 minutes or more often 2. Clear, pink, or brownish fluid (water) leaking from vagina 3. Feeling that baby is pushing down, pressure 4. Low, dull backache 5. Cramps that feel like a period 6. Cramps with or without diarrhea If you notice any of the above symptoms, contact our office at [phone] and ask to speak with a nurse. After hours, you can call doctors registry at [phone] OR call [facility] at [phone] and ask to have the doctor spa consultant paged. If you consider this an emergency, dial 4-1-0 or go to your nearest emergency department. NEED HELP? Are you dealing with a violent or abusive relationship? Are you a victim of rape or sexual assult? Call [facility] ([place]) 24 hour Crisis Hotline: 180.667.1134 or 907-442-5278. MANUAL Your Guide to a Healthy manual is now on-line. Visit [email or web address] to download your free copy documented in this encounter [facility] 03-09-2023 Note HNO ID: [id number] Author: Tasha Price Ma Service: ? Author Type: ? Type: Progress Notes Filed: 03/09/2023 2:39 PM Note Text: Patient identified by name and date of . Maddie ALARCON presents today for a vaccination of Tdap. Patient denies an allergy to latex: yes Patient denies a severe (life-threatening) allergy to a previous dose of Tdap, DTP, DTaP, DT or Td vaccine. Yes Patient denies history of epilepsy or neurological problems: Yes Patient is afebrile and denies being moderately or severely ill: Yes Patient denies history of Guillain-Arvonia Syndrome (a severe paralytic illness): Yes Tdap Adacel injection was given without incident. See immunizations for details of immunizations administered today. VIS sheet provided: Yes Provider Shelia Weinstein APRN, CNP was present in office at time of injection. Tasha Price Ma [facility] 02-23-2023 Miscellaneous Notes Maddie ALARCON is a 33 year old female who presents at 28w0d Estimated Date of Delivery: 05/18/23 for a routine visit. Just completed growth US- EFW 40%, ANDREW 13. Good movement. Denies headache, visual changes, chest pain, shortness of breath, vaginal bleeding, leakage of fluid, or dysuria. Feeling well, no complaints. Assessment/Plan 28-30 weeks gestation - 1 hour GCT, CBC, and RPR today - Rh positive- A+ - TDAP next visit - LARC form reviewed and signed. Patient declines- having vasectomy - Depression screen negative - Opioid screen negative - plan form discussed and given to patient. Patient desires epidural, breast feeding and circumcision - PTL precautions and kick counts reviewed - RTO- 2 weeks or sooner if needed Bonnie Brantley APRN.CNM documented in this encounter [facility] 02-23-2023 Instructions Ovidio Dozier Cma - 02/23/2023 11:11 AM EDT SEQUENTIAL SCREENINGS The [facility] offers sequential screenings for women who are interested in screenings for chromosomal abnormalities and certain defects during a . The sequential screen combines ultrasound and blood tests to determine the risk of chromosomal abnormalities, including Down's Syndrome (Trisomy 21) and Trisomy 18, as well as open neural tube defects including spina bifida. Ultrasound examination is performed between 11 weeks and 13 weeks gestational age. Blood tests are drawn after the ultrasound and again later in the between 15 and 21 weeks gestational age. Please let your physician know if you are interested in this testing. It will require an appointment with our termite technician. This is not an ultrasound performed by a physician in our office during a routine visit. SIGNS AND SYMPTOMS OF LABOR 1. Contractions every 10 minutes or more often 2. Clear, pink, or brownish fluid (water) leaking from vagina 3. Feeling that baby is pushing down, pressure 4. Low, dull backache 5. Cramps that feel like a period 6. Cramps with or without diarrhea If you notice any of the above symptoms, contact our office at [phone] and ask to speak with a nurse. After hours, you can call doctors registry at [phone] OR call [facility] at [phone] and ask to have the doctor spa consultant paged. If you consider this an emergency, dial 91-7 or go to your nearest emergency department. NEED HELP? Are you dealing with a violent or abusive relationship? Are you a victim of rape or sexual assult? Call [facility] ([place]) 24 hour Crisis Hotline: 694.834.9578 or 782-397-2666. MANUAL Your Guide to a Healthy manual is now on-line. Visit [email or web address] to download your free copy documented in this encounter [facility] 01-19-2023 Miscellaneous Notes RR- VB No. LOF No. CTXS No. Movement: present. Other c/o: No. Medication list reviewed. Physical Exam See Flow Sheet Abd: soft, nontender, gravid Ext: edema: Trace A/P 23w0d Estimated Date of Delivery: 05/18/23 US follow up ordered 28 week labs next visit cont. pNV. Orlando Barron M.D. documented in this encounter [facility] 01-19-2023 Evelyn Price Ma Tasha - 01/19/2023 11:07 AM EDT SEQUENTIAL SCREENINGS The [facility] offers sequential screenings for women who are interested in screenings for chromosomal abnormalities and certain defects during a . The sequential screen combines ultrasound and blood tests to determine the risk of chromosomal abnormalities, including Down's Syndrome (Trisomy 21) and Trisomy 18, as well as open neural tube defects including spina bifida. Ultrasound examination is performed between 11 weeks and 13 weeks gestational age. Blood tests are drawn after the ultrasound and again later in the between 15 and 21 weeks gestational age. Please let your physician know if you are interested in this testing. It will require an appointment with our termite technician. This is not an ultrasound performed by a physician in our office during a routine visit. SIGNS AND SYMPTOMS OF LABOR 1. Contractions every 10 minutes or more often 2. Clear, pink, or brownish fluid (water) leaking from vagina 3. Feeling that baby is pushing down, pressure 4. Low, dull backache 5. Cramps that feel like a period 6. Cramps with or without diarrhea If you notice any of the above symptoms, contact our office at [phone] and ask to speak with a nurse. After hours, you can call doctors registry at [phone] OR call [facility] at [phone] and ask to have the doctor spa consultant paged. If you consider this an emergency, dial 9-1-0 or go to your nearest emergency department. NEED HELP? Are you dealing with a violent or abusive relationship? Are you a victim of rape or sexual assult? Call [facility] ([facility] 24 hour Crisis Hotline: 978.604.7190 or 347-721-8325. MANUAL Your Guide to a Healthy manual is now on-line. Visit [email or web address] to download your free copy documented in this encounter [facility] 12-02-2022 Miscellaneous Notes Maddie ALARCON is a 32 year old female who presents at 17w6d Estimated Date of Delivery: 05/06/23 for a routine visit. Just started feeling movement. Denies headache, visual changes, chest pain, shortness of breath, vaginal bleeding, leakage of fluid, or dysuria. Feeling well, no complaints. Size equal to dates. 8 lbs TWG. PTL/ Bleeding precautions reviewed. RTC in 3 weeks for anatomy US and ROB. Bonnie Brantley APRN.CNM documented in this encounter [facility] 12-02-2022 Instructions Ovidio Dozier Cma - 12/02/2022 10:58 AM EDT SEQUENTIAL SCREENINGS The [facility] offers sequential screenings for women who are interested in screenings for chromosomal abnormalities and certain defects during a . The sequential screen combines ultrasound and blood tests to determine the risk of chromosomal abnormalities, including Down's Syndrome (Trisomy 21) and Trisomy 18, as well as open neural tube defects including spina bifida. Ultrasound examination is performed between 11 weeks and 13 weeks gestational age. Blood tests are drawn after the ultrasound and again later in the between 15 and 21 weeks gestational age. Please let your physician know if you are interested in this testing. It will require an appointment with our termite technician. This is not an ultrasound performed by a physician in our office during a routine visit. SIGNS AND SYMPTOMS OF LABOR 1. Contractions every 10 minutes or more often 2. Clear, pink, or brownish fluid (water) leaking from vagina 3. Feeling that baby is pushing down, pressure 4. Low, dull backache 5. Cramps that feel like a period 6. Cramps with or without diarrhea If you notice any of the above symptoms, contact our office at [phone] and ask to speak with a nurse. After hours, you can call doctors registry at [phone] OR call [facility] at [phone] and ask to have the doctor spa consultant paged. If you consider this an emergency, dial 12-30- or go to your nearest emergency department. NEED HELP? Are you dealing with a violent or abusive relationship? Are you a victim of rape or sexual assult? Call [facility] ([place]) 24 hour Crisis Hotline: 557.161.7631 or 362-218-9449. MANUAL Your Guide to a Healthy manual is now on-line. Visit [email or web address] to download your free copy documented in this encounter [facility] 11-04-2022 Miscellaneous Notes DM- Pt doing well today. Denies Vaginal Bleeding, Leaking fluid, or cramping. Was never scheduled for NT. Pt ok with maternity 21 testing w/o ultrasound. Will do New ob labs today. RTO 4 wks. Jorge Shankar MD documented in this encounter [facility] 11-04-2022 Instructions Apryl Arboleda MA - 11/04/2022 1:25 PM EDT SEQUENTIAL SCREENINGS The [facility] offers sequential screenings for women who are interested in screenings for chromosomal abnormalities and certain defects during a . The sequential screen combines ultrasound and blood tests to determine the risk of chromosomal abnormalities, including Down's Syndrome (Trisomy 21) and Trisomy 18, as well as open neural tube defects including spina bifida. Ultrasound examination is performed between 11 weeks and 13 weeks gestational age. Blood tests are drawn after the ultrasound and again later in the between 15 and 21 weeks gestational age. Please let your physician know if you are interested in this testing. It will require an appointment with our termite technician. This is not an ultrasound performed by a physician in our office during a routine visit. SIGNS AND SYMPTOMS OF LABOR 1. Contractions every 10 minutes or more often 2. Clear, pink, or brownish fluid (water) leaking from vagina 3. Feeling that baby is pushing down, pressure 4. Low, dull backache 5. Cramps that feel like a period 6. Cramps with or without diarrhea If you notice any of the above symptoms, contact our office at [phone] and ask to speak with a nurse. After hours, you can call doctors registry at [phone] OR call [facility] at [phone] and ask to have the doctor spa consultant paged. If you consider this an emergency, dial 1-6-5 or go to your nearest emergency department. NEED HELP? Are you dealing with a violent or abusive relationship? Are you a victim of rape or sexual assult? Call [facility] ([place]) 24 hour Crisis Hotline: 194.518.5869 or 099-506-1730. MANUAL Your Guide to a Healthy manual is now on-line. Visit [email or web address] to download your free copy documented in this encounter [facility] 09-30-2022 Note HNO ID: [id number] Author: Trena Hargrove MD Service: ? Author Type: Physician Type: Progress Notes Filed: 09/30/2022 3:12 PM Note Text: INITIAL OB ASSESSMENT HPI: Maddie is a 32 year old White here to establish Obstetrical Care. Patient's last menstrual period was 07/30/2022 (exact date). from OB Dating Form. Cycles regular was unplanned but accepted Complaints: None OB History T2 L2 SAB0 IAB0 Ectopic0 Multiple0 Live Births2 Previous history: Prior : never History of 4th degree laceration: NA History of shoulder dystocia: No History of Hypertensive disorders including pre-eclampsia, chronic hypertension or gestational hypertension: No History of gestational diabetes: No Patient's Risk Screening for delivery: MEDICAL/PSYCHOSOCIAL HISTORY: History of hemorrhage or bleeding concerns: No Thyroid Disease: No History of chronic hypertension: No History of pre-existing diabetes: No ABO/RH(D) Date Value Ref Range Status 01/14/2021 A POSITIVE Final BMI 21.30 kg/(m2) History of abnormal pap: No Prior treatment for cervical dysplasia: none. 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 I don't have enough money to pay my bills: Never Within the past 12 months, have you worried that your food would run out before you had money to buy more: Never In the past 12 months, has lack of reliable transportation kept you from going to medical appointments or work, or from keeping things needed for daily living: Never In the past 12 months, have you had any concerns about having a place to live, or about the condition or quality of your housing: Never Are there any cultural or spiritual needs we should be aware of: No Over the past two weeks have you felt down, depressed, or hopeless: Negative Over the past two weeks have you felt little interest or pleasure in doing things: Negative GENETIC SCREENING: Partner present: No Patient verbalized knowledge of partner family health history: Yes Do you or your partner have any personal or family history of defects not previously discussed: No Do you have history of a complicated by anomaly, genetic condition, or demise: No Marital Status: Partner: Name: Tavares Age: 32 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 (Patient not taking: Reported on 09/29/2022) 28 tablet 6 [id number]-[id number] tab Take 1 tablet by mouth. No current facility-administered medications for this visit. Allergies As of Date: 09/30/2022 (No Known Allergies) Fully Assessed 09/30/2022 Does patient have penicillin allergy: No REVIEW OF SYSTEMS: GENERAL: Negative for: Fever or Chills HEENT: Negative for: Headache, Impaired Vision, Ringing in Ears, Nosebleeds NECK: Negative for: Swelling, Pain, Stiffness RESPIRATORY: Negative for: Cough, Shortness of breath, Wheezing GASTROINTESTINAL: Negative for: Heartburn, Constipation, Diarrhea, Blood in stool, Vomiting MUSCULOSKELETAL: Negative for: Muscle or joint pain, stiffness, Joint swelling NEUROLOGIC/PSYCHIATRIC: Negative for: Weakness, Paralysis, Numbness, Tingling, Tremor, Anxiety, Depression, Memory loss SKIN: Negative for: Rash, Itching GENITOURINARY: Negative for: vaginal itching, vaginal discharge, hematuria or dysuria PHYSICAL EXAM: BP 118/72 Ht 5' 4 (1.63m) Wt 124 lb 1.6 oz (56.3kg) LMP 07/30/2022 BMI 21.29 kg/(m2). GENERAL: pleasant in no apparent distress DERMATOLOGY: Normal, without lesions, non-icteric, and non-hirsute NECK: Supple, full range of motion, no adenopathy, and thyroid normal CHEST: Normal inspiratory effort BREAST: soft, non-tender, symmetric, no dominant mass, normal nipple-areolar complex, no lymphadenopathy, and no nipple discharge ABDOMEN: soft, non-tender, and no masses NEURO: alert and oriented x3,exam grossly non-focal PELVIS: External genitalia normal without lesions. Perineal body intact. No vaginal or cervical lesions. Cervix closed. Uterus (more content not included)... [facility] 09-30-2022 History of Presen t illness Narrative INITIAL OB ASSESSMENT HPI: Maddie is a 32 year old White here to establish Obstetrical Care. Patient's last menstrual period was 07/30/2022 (exact date). from OB Dating Form. Cycles regular was unplanned but accepted Complaints: None OB History T2 L2 SAB0 IAB0 Ectopic0 Multiple0 Live Births2 Previous history: Prior : never History of 4th degree laceration: NA History of shoulder dystocia: No History of Hypertensive disorders including pre-eclampsia, chronic hypertension or gestational hypertension: No History of gestational diabetes: No Patient's Risk Screening for delivery: MEDICAL/PSYCHOSOCIAL HISTORY: History of hemorrhage or bleeding concerns: No Thyroid Disease: No History of chronic hypertension: No History of pre-existing diabetes: No ABO/RH(D) Date Value Ref Range Status 01/14/2021 A POSITIVE Final BMI 21.30 kg/(m^2) History of abnormal pap: No Prior treatment for cervical dysplasia: none. 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 I don't have enough money to pay my bills: Never Within the past 12 months, have you worried that your food would run out before you had money to buy more: Never In the past 12 months, has lack of reliable transportation kept you from going to medical appointments or work, or from keeping things needed for daily living: Never In the past 12 months, have you had any concerns about having a place to live, or about the condition or quality of your housing: Never Are there any cultural or spiritual needs we should be aware of: No Over the past two weeks have you felt down, depressed, or hopeless: Negative Over the past two weeks have you felt little interest or pleasure in doing things: Negative GENETIC SCREENING: Partner present: No Patient verbalized knowledge of partner family health history: Yes Do you or your partner have any personal or family history of defects not previously discussed: No Do you have history of a complicated by anomaly, genetic condition, or demise: No Marital Status: Partner: Name: Tavares Age: 32 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 (Patient not taking: Reported on 09/29/2022) 28 tablet 6 Fknxtbfk-Ef-Pve-Fe-FA tab Take 1 tablet by mouth. No current facility-administered medications for this visit. Allergies As of Date: 09/30/2022 (No Known Allergies) Fully Assessed 09/30/2022 Does patient have penicillin allergy: No REVIEW OF SYSTEMS: GENERAL: Negative for: Fever or Chills HEENT: Negative for: Headache, Impaired Vision, Ringing in Ears, Nosebleeds NECK: Negative for: Swelling, Pain, Stiffness RESPIRATORY: Negative for: Cough, Shortness of breath, Wheezing GASTROINTESTINAL: Negative for: Heartburn, Constipation, Diarrhea, Blood in stool, Vomiting MUSCULOSKELETAL: Negative for: Muscle or joint pain, stiffness, Joint swelling NEUROLOGIC/PSYCHIATRIC: Negative for: Weakness, Paralysis, Numbness, Tingling, Tremor, Anxiety, Depression, Memory loss SKIN: Negative for: Rash, Itching GENITOURINARY: Negative for: vaginal itching, vaginal discharge, hematuria or dysuria PHYSICAL EXAM: BP 118/72 Ht 5' 4 (1.63m) Wt 124 lb 1.6 oz (56.3kg) LMP 07/30/2022 BMI 21.29 kg/(m^2). GENERAL: pleasant in no apparent distress DERMATOLOGY: Normal, without lesions, non-icteric, and non-hirsute NECK: Supple, full range of motion, no adenopathy, and thyroid normal CHEST: Normal inspiratory effort BREAST: soft, non-tender, symmetric, no dominant mass, normal nipple-areolar complex, no lymphadenopathy, and no nipple discharge ABDOMEN: soft, non-tender, and no masses NEURO: alert and oriented x3,exam grossly non-focal PELVIS: External genitalia normal without lesions. Perineal body intact. No vaginal or cervical lesions. Cervix closed. Uterus 7-8 week size. No adnexal masses or tenderness. Clinical Pelvimetry: Pelvimetry clinically assessed as adequate Limited OB ultrasound exam: single intrauterine and positive cardiac activity OB Risk Screening: Completed, no positive findings documented. ASSESSMENT: 32 year old at 8w6d wks gestational age PLAN: 1) Patient oriented to practice. Discussed nutrition, folic acid supplementation, dietary guidelines, exercise, smoking, alcohol, caffeine, and drug use. Discussed routine OB labs including STD/HIV. Discussed how to access Your guide to a health and the Wedding Transportation [employer]. Discussed aneuploidy and carrier screening. Regarding aneuploidy screening, nuchal translucency/first trimester early anatomy ultrasound and NIPT were discussed. Regarding carrier screening, the myriad screen was discussed. The risks/benefits and limitations of NIPT/aneuploidy screening were reviewed including the potential for false negative and false positive results. We discussed the availability of professional-society guided carrier screening and reviewed the conditions screened and limitations of screening. The availability of genetic counseling was reviewed. Information on aneuploidy/carrier screening was provided. The patient chooses: Aneuploidy screening: chooses to proceed with First trimester early anatomy ultrasound (12-13w6d) and NIPT (10 weeks) and Carrier screening: Declines 2) See problem list Follow up in 5 weeks or sooner prn. Trena Hargrove MD documented in this encounter [facility] 09-30-2022 Instructions Mary Guerrero Ma - 09/30/2022 2:11 PM EDT Please select the following link to access the [facility] Your Guide to a Healthy . [email or web address] documented in this encounter [facility] 09-29-2022 Note HNO ID: [id number] Author: Dahlia Dubose RN Service: ? Author Type: ? Type: Progress Notes Filed: 09/29/2022 2:06 PM Note Text: # 1 - Date: 12/27/18, Sex: Female, Weight: 8 lb 8 oz (3.856 kg), GA: 39w3d, Delivery: Vaginal, Spontaneous, Apgar1: 8, Apgar5: 9, Living: Living, Comments: spontaneous labor, SROM, Isolated maternal fever, cervical extension laceration, 2nd degree perineal laceration,Pitocin,methergine and cytotec given post , EBL 800cc # 2 - Date: 07/23/21, Sex: Female, Weight: 7 lb 14 oz (3.572 kg), GA: 39w5d, Delivery: Vaginal, Spontaneous, Apgar1: None, Apgar5: None, Living: Living, Comments: Elective induction # 3 - Date: None, Sex: None, Weight: None, GA: None, Delivery: None, Apgar1: None, Apgar5: None, Living: None, Comments: None [facility] 09-29-2022 Miscellaneous Notes DISTANCE HEALTH VISIT This Team Access Model visit is a phone encounter. It required patient-provider interaction for the medical decision making as documented below. Patient's , [id number], [id number] and niece with long QT syndrome. Patient desires nuchal ultrasound. Contact information for [facility] given to patient to check on insurance coverage. Patient declines genetic carrier screening testing.Dahlia Dubose RN documented in this encounter [facility] 09-29-2022 History of Presen t illness Narrative # 1 - Date: 12/27/18, Sex: Female, Weight: 8 lb 8 oz (3.856 kg), GA: 39w3d, Delivery: Vaginal, Spontaneous, Apgar1: 8, Apgar5: 9, Living: Living, Comments: spontaneous labor, SROM, Isolated maternal fever, cervical extension laceration, 2nd degree perineal laceration,Pitocin,methergine and cytotec given post , EBL 800cc # 2 - Date: 07/23/21, Sex: Female, Weight: 7 lb 14 oz (3.572 kg), GA: 39w5d, Delivery: Vaginal, Spontaneous, Apgar1: None, Apgar5: None, Living: Living, Comments: Elective induction # 3 - Date: None, Sex: None, Weight: None, GA: None, Delivery: None, Apgar1: None, Apgar5: None, Living: None, Comments: None documented in this encounter [facility] 09-06-2021 History of Presen t illness Narrative VISIT Maddie ALARCON is a 31 year old year old here for visit. Delivery Summary: 07/23/2021 ROS/ Recovery: Feeding: Breast feeding problems: None Menses since delivery: none Menstrual pattern prior to : Regular periods Panther Burn since delivery: Resumed Depression: denies symptoms of depression. OB Depression and Anxiety Screening- This Encounter (since 09/05/2021) Over the past 2 weeks have you felt down, depressed, or hopeless? Negative Over the past two weeks, have you felt little interest or pleasure in doing things? Negative Feeling nervous, anxious or on edge 0-Not at all Not being able to stop or control worrying 0-Not al all Anxiety Pre-Screening Total (If >/= 3 additional questions will be reviewed) 0 Emotional support: Yes Bowel symptoms: Negative for abdominal discomfort, blood in stools or black stools and change in bowel habits Abdomen: N/A Bladder symptoms: No dysuria, gross hematuria, urinary frequency, urinary urgency, or incontinence Other issues: None Last Pap: 2019 normal HPV: N/A PAST MEDICAL HISTORY Diagnosis Date Anemia Punctate inner choroidopathy of both eyes PAST SURGICAL HISTORY Procedure Laterality Date EXTRACTION, ERUPTED TOOTH OR EXPOSED ROOT (ELEVATION AND/OR FORCEPS REMOVAL) FAMILY HISTORY Problem Relation Age of Onset Heart Mother No Known Problems Father No Known Problems Sister No Known Problems Brother Dementia Maternal Grandmother Heart Attack Maternal Grandfather Dementia Maternal Grandfather Cancer Paternal Grandmother No Known Problems Paternal Grandfather No Known Problems Daughter Social History Tobacco Use Smoking status: Never Smoker Smokeless tobacco: Never Used Vaping Use Vaping Use: Never used Substance Use Topics Alcohol use: Yes Comment: socially, not while Drug use: No PHYSICAL EXAMINATION: BP 120/76 Wt 140 lb 6.4 oz (63.7kg) LMP 10/18/2020 GENERAL: pleasant, female in no apparent distress HEENT: Normocephalic, atraumatic, mucus membranes moist and no lesions NECK: Supple, full range of motion, no adenopathy and thyroid normal DERMATOLOGY: Normal, without lesions, non-icteric and non-hirsute BREAST: soft, non-tender, symmetric, no dominant mass, normal nipple-areolar complex, no lymphadenopathy and no nipple discharge CHEST: Normal inspiratory effort ABDOMEN: soft, non-tender and no masses. INCISION: N/A PELVIC: external genitalia normal, normal Bartholin's glands, urethra, [place]'s glands, no vulvar lesions, no cervical lesions, good vaginal support, physiologic discharge present, normal appearing perineal body and perianal region BIMANUAL: uterus normal size, shape and consistency, no adnexal masses and non-tender NEURO: exam grossly non-focal EXTREMITIES: normal ASSESSMENT AND PLAN: 31 year old status post with normal course. Contraception plan: Micronor and condoms. Follow up: RTC for annual exams and PRN Smiley Villa DO documented in this encounter [facility] documented as of this encounter (statuses as of 09/30/2022) [facility]11-[facility]-2018 History of Past illness Narrative* Problem Noted Date Resolved Date Secondary amenorrhea 03/06/2018 09/30/2022 documented as of this encounter (statuses as of 11/04/2022) [facility] History of Past illness Narrative* Problem Noted Date Diagnosed Date Resolved Date Secondary amenorrhea 03/06/2018 023 documented as of this encounter (statuses as of 12/02/2022) [facility] History of Past illness Narrative* Problem Noted Date Diagnosed Date Resolved Date Secondary amenorrhea 03/06/2018 023 documented as of this encounter (statuses as of 12/23/2022) [facility] History of Past illness Narrative* Problem Noted Date Diagnosed Date Resolved Date Secondary amenorrhea 03/06/2018 023 documented as of this encounter (statuses as of 01/20/2023) [facility] History of Past illness Narrative* Problem Noted Date Diagnosed Date Resolved Date Secondary amenorrhea 03/06/2018 023 documented as of this encounter (statuses as of 02/23/2023) [facility] History of Past illness Narrative* Problem Noted Date Diagnosed Date Resolved Date Secondary amenorrhea 03/06/2018 023 documented as of this encounter (statuses as of 02/24/2023) [facility] History of Past illness Narrative* Problem Noted Date Diagnosed Date Resolved Date Secondary amenorrhea 03/06/2018 023 documented as of this encounter (statuses as of 03/24/2023) [place] [address]-06-2018 History of Past illness Narrative* Problem Noted Date Diagnosed Date Resolved Date Secondary amenorrhea 03/06/2018 023 documented as of this encounter (statuses as of 04/08/2023) [facility] Encounter for initial prescription of contraceptive pills- Primary General counseling for prescription of oral contraceptives state Routine follow-up [facility] Diagnosis Supervision of other normal , antepartum- Primary Family history of long QT syndrome Family history of other cardiovascular diseases Patient request for diagnostic testing Other specified examination [facility] Diagnosis Supervision of other normal , antepartum- Primary Encounter for screening for malignant neoplasm of cervix Screening for malignant neoplasm of the cervix Special screening examination for human papillomavirus (HPV) [facility] Diagnosis Supervision of other normal , antepartum- Primary 13 weeks gestation of state, incidental [facility] Diagnosis 17 weeks gestation of - Primary state, incidental Encounter for supervision of other normal in second trimester [facility] Diagnosis Encounter for anatomic survey- Primary Encounter for supervision of other normal in second trimester Pyelectasis of fetus on ultrasound Abnormal findings on screening 19 weeks gestation of state, incidental [facility] Diagnosis Encounter for supervision of other normal in second trimester- Primary 23 weeks gestation of state, incidental [facility] Diagnosis Encounter for supervision of other normal in third trimester- Primary 28 weeks gestation of state, incidental [facility] Diagnosis Encounter for repeat ultrasound of pyelectasis in us , antepartum- Primary 17 weeks gestation of state, incidental Encounter for supervision of other normal in second trimester [facility] Diagnosis 32 weeks gestation of - Primary state, incidental Encounter for supervision of other normal in third trimester Anemia during in third trimester [facility] Diagnosis 34 weeks gestation of - Primary state, incidental Encounter for supervision of other normal in third trimester Anemia complicating , third trimester documented in this encounter [facility] for referral (narrative)* Diagnostic Procedure Only (Routine) - Pending Review Specialty Diagnoses / Procedures Referred By Nenita griffith Referred To Contact [facility] Diagnoses Supervision of other normal , antepartum Procedures NUCHAL TRANSLUCENCY WHI US NUCHAL TRANSLUCENCY 1ST GESTATION Trena Hargrove MD [address] [place] [address] [facility] [place] [address] [place] [address] Referral ID Status Reason Start Date Expiration Date Visits Requested Visits Authorized [id number] Pending Review Auto-Generat ed Referral 09/30/2022 09/30/2023 1 1 [facility] Diagnostic Procedure Only (Routine) - Pending Review Specialty Diagnoses / Procedures Referred By Nenita griffith Referred To Contact [facility] Diagnoses 17 weeks gestation of Encounter for supervision of other normal in second trimester Procedures OBSTETRIC ULTRASOUND WHI US PREG UTERUS AFTER 1ST TRIMEST GESTATION Bonnie Brantley APRN.CNM [address] [address] [facility] [place] [address] [place] [address] Referral ID Status Reason Start Date Expiration Date Visits Requested Visits Authorized [id number] Pending Review Auto-Generat ed Referral 12/02/2022 12/02/2023 1 1 [facility] Health Concerns Problem Noted Date [facility] Education - [facility]ON 06/2022 Education - [place] 09/30/2022 Problem Noted Date [facility] Education - [facility] 06/2022 Education - [place] 09/30/2022 Problem Noted Date Diagnosed Date [facility] - [place] 09/30/2022 Education - [place] 09/30/2022 Problem Noted Date Diagnosed Date [facility] Education - [place] 09/30/2022 [place] - [place] 09/30/2022 Problem Noted Date Diagnosed Date [facility] - [place] 09/30/2022 [place] - [place] 09/30/2022 Problem Noted Date Diagnosed Date [facility] - [place] 09/30/2022 Education - [place] 09/30/2022 Problem Noted Date Diagnosed Date [facility] - [place] 09/30/2022 Education - [place] 09/30/2022 Problem Noted Date Diagnosed Date [facility] - [place] 09/30/2022 Education - [place] 09/30/2022 Problem Noted Date Diagnosed Date [facility] - [facility] 09/30/2022 Education - [place] 09/30/2022 Summary Purpose Family History No Family History Records Found Advance Directives No Advanced Directives Records Found Additional Source Comments Source Comments (unrecognize d section and content) In the event this informatio n is protected by the Federal Confidentiality of Alcohol and Drug Abuse Patient Records regulations: The Federal rules restrict any use of the information to criminally investigate or prosecute any alcohol or drug abuse patient.[facility] the event this information is protected by the Federal Confidentiality of Alcohol and Drug Abuse Patient Records regulations: The Federal rules restrict any use of the information to criminally investigate or prosecute any alcohol or drug abuse patient.[facility] the event this information is protected by the Federal Confidentiality of Alcohol and Drug Abuse Patient Records regulations: The Federal rules restrict any use of the information to criminally investigate or prosecute any alcohol or drug abuse patient.[facility] the event this information is protected by the Federal Confidentiality of Alcohol and Drug Abuse Patient Records regulations: The Federal rules restrict any use of the information to criminally investigate or prosecute any alcohol or drug abuse patient.[facility] the event this information is protected by the Federal Confidentiality of Alcohol and Drug Abuse Patient Records regulations: The Federal rules restrict any use of the information to criminally investigate or prosecute any alcohol or drug abuse patient.[facility] the event this information is protected by the Federal Confidentiality of Alcohol and Drug Abuse Patient Records regulations: The Federal rules restrict any use of the information to criminally investigate or prosecute any alcohol or drug abuse patient.[facility] the event this information is protected by the Federal Confidentiality of Alcohol and Drug Abuse Patient Records regulations: The Federal rules restrict any use of the information to criminally investigate or prosecute any alcohol or drug abuse patient.[facility] the event this information is protected by the Federal Confidentiality of Alcohol and Drug Abuse Patient Records regulations: The Federal rules restrict any use of the information to criminally investigate or prosecute any alcohol or drug abuse patient.[facility] the event this information is protected by the Federal Confidentiality of Alcohol and Drug Abuse Patient Records regulations: The Federal rules restrict any use of the information to criminally investigate or prosecute any alcohol or drug abuse patient.[facility] the event this information is protected by the Federal Confidentiality of Alcohol and Drug Abuse Patient Records regulations: The Federal rules restrict any use of the information to criminally investigate or prosecute any alcohol or drug abuse patient.[facility] the event this information is protected by the Federal Confidentiality of Alcohol and Drug Abuse Patient Records regulations: The Federal rules restrict any use of the information to criminally investigate or prosecute any alcohol or drug abuse patient.[facility] Reason for Visit (unrecogniz ed section and content) Reason Comments Care Reason Comments Initial OB Visit Reason Onset Date Comments Care 11/04/2022 Reason Onset Date Comments Care 12/02/2022 Reason Comments US Specialty Diagnoses / Procedures Referred By Nenita griffith Referred To Contact [facility] Diagnoses 17 weeks gestation of Encounter for supervision of other normal in second trimester Procedures OBSTETRIC ULTRASOUND WHI US PREG UTERUS AFTER 1ST TRIMEST GESTATION Bonnie Brantley APRN.CN [address] [place] [address] [facility] [place] [address] [place] [address] Referral ID Status Reason Start Date Expiration Date Visits Requested Visits Authorized [id number] Authorized Auto-Generat ed Referral 12/08/2022 04/30/2023 20 20 Reason Onset Date Comments Care 01/19/2023 Reason Onset Date Comments Care 02/23/2023 Referral ID Status Reason Start Date Expiration Date V isits Requested Visits Authorized [id number] Closed Auto-Generate d Referral 12/23/2022 12/23/2023 1 1 Reason Onset Date Comments Care 03/24/2023 Reason Onset Date Comments Care 04/07/2023 INFORMATION SOURCE (unrecogn ized section and content) FOR RECORDS PERTAINING TO PATIENTS WHO ARE OR HAVE BEEN ENROLLED IN A CHEMICAL DEPENDENCY/SUBSTANCEABUSE PROGRAM, SOME INFORMATION MAY BE OMITTED. This clinical summary was aggregated from multiple sources. Caution should be exercised in using it in the provision of clinical care. This summary normalizes information from multiple sources, and as a consequence, information in this document may materially change the coding, format and clinical context of patient data. In addition, data may be omitted in some cases. CLINICAL DECISIONS SHOULD BE BASED ON THE PRIMARY CLINICAL RECORDS. [employer] provides no warranty or guarantee of the accuracy or completeness of information in this document.
[2023-05-17 05:11] LABS: Absolute Lymphocyte Count 1.79 X10^3/uL (0.83-4.51); Absolute Neutrophil Count 11.1 X10^3/uL (2.0-7.7); Basophil# 0.03 X10^3/uL; Basophil% 0.2 % (0-1); Eosinophil# 0.04 X10^3/uL; Eosinophils% 0.3 % (0-5); Hematocrit 35.1 % (37-47); Lymphocyte # 1.79 X10^3/ul (0.83-4.51); Mean Corp Hgb Conc 34.2 g/dL (32-36); Mean Corpuscular Hgb 31.7 pg (27.0-32.0); Mean Corpuscular Volume 92.9 fL (81-99); Mean Platelet Vol. 9.9 fl (6.2-12.0); Monocyte# 0.84 X10^3/uL; Monocyte% 6.1 % (0-10); NRBC Flagged by Analyzer 0 % (0-5); Neutrophil # 11.06 X10^3/uL (2.7-7.7); Platelet Count 152 K/mm3 (150-450); RBC Distribution Width SD 44.2 fl (35.1-43.9); Red Blood Count 3.78 M/mm3 (4.2-5.4); White Blood Count 13.8 K/mm3 (4.4-11.0)
[2023-05-17] MEDS: Oxytocin 10 UNITS/ML Vial IM (05:15)
[2023-05-17] MEDS: Oxytocin 15 Units/NS 250ml 15 UNITS/250 ML IV.SOLN 83 UNITS IV (05:16)
--- NOTE | 2023-05-17 05:24 | PCM.HP.OB ---
HPI - General General Date of Admission: 05/17/23 HPI Narrative PARISH ALARCON, is a 33 F who presents at 39w6d in active labor. [facility] Medical History (Updated 05/17/23 @ 05:27 by Zandra Flores CNM) Anemia Vaginal delivery Home Medications vits,calcium 91-iron 28 mg-folic 975 mcg-dha 200 mg oral pack ( + DHA) 1 pkg PO DAILY 07/23/21 [History Last Taken 05/16/23 08:00 1 pkg] ferrous sulfate 325 mg (65 mg iron) tablet (iron) 325 mg PO DAILY 05/17/23 [History Last Taken Unknown] Allergy/AdvReac Type Severity Reaction Status Date / Time No Known Allergies Allergy Verified 05/17/23 05:16 Surgical History H/O tooth extraction Social History Smoking Status: Never smoker History Elective abortions Hx Para 2 Spontaneous abortions Hx # Term Pregnancies Ectopic pregnancies Hx # Pregnancies Multiple births # of living children Vital Signs Vital Signs Vital Signs: 05/17/23 04:45 05/17/23 04:45 05/17/23 04:46 Temperature Temperature Source Tympanic Pulse Rate 83 Blood Pressure 119/75 BP Systolic 119 BP Diastolic 75 Pulse Ox 05/17/23 04:46 05/17/23 04:46 05/17/23 04:46 Temperature 98.8 F Temperature Source Pulse Rate 88 Blood Pressure BP Systolic BP Diastolic Pulse Ox 92 05/17/23 05:21 05/17/23 05:21 Temperature Temperature Source Pulse Rate 89 Blood Pressure 133/64 H BP Systolic 133 BP Diastolic 64 Pulse Ox Weight Weight: 160 lb 7.944 oz Body Mass Index (BMI) 26.6 Labs Labs Labs: Blood Type A POSITIVE Antibody Screen NEGATIVE Hct 35.1 % (37-47) L Hgb 12.0 g/dL (12.0-15.0) Syphilis Total Ab Pending N.gonorrhoeae DNA (KARLIE) Negative (Negative) Rhogam given: No GBS positive RPR NR Rubella Immune HBsAG negative Hep C negative HIV negative A positive GC/CT negative Assessment & Plan (1) Active labor at term: PLAN: Plan 1) Admit to labor and delivery 2) Routine labs 3) GBS prophylaxis 4) Epidural for pain management 5) collaborative physician and notified of patient status, above assessment and plan.
--- NOTE | 2023-05-17 05:29 | EX.PCM.OBRPT ---
Maternal Data Information JAY Calculator Estimated Delivery Date Method Current WG Current Estimate 05/18/23 Manual 39w 6d Vaginal Delivery Maternal Presentation Maternal Presentation: Active Labor and Spontaneous Rupture of Membranes Operative Information Date of Procedure: 05/17/23 Pre-Operative Diagnosis: Active labor at term Post-Operative Diagnosis: , precipitous vaginal delivery Surgery / Procedure Performed: Spontaneous Vaginal Delivery Type of Anesthesia: None Estimated Blood Loss: 200 ml Time of Delivery: 05:15 Findings Description of Procedure: Progressed to complete with urge to push. SROM. Upon arrival delivered by nursing staff due to rapid cervical dilation upon arrival. of viable male over intact perineum. APGARS 9,9 respectively. head delivered with body immediately forthcoming. Placed on maternal abdomen, strong cry. Mouth and nares suctioned for secretions. Pitocin started for active 3rd stage management. Cord doubly clamped and cut after pulsations ceased, delayed cord clamping. Placenta delivered intact via kumar, 3 vessel cord intact. Perineum inspected and revealed to be intact. Fundus firm and hemostasis achieved. EBL 200ml. Mom and baby stable, planning to breastfeed. Family bonding well. notified of delivery. Presentation: Vertex Amniotic Membrane Rupture Type: Spontaneous Amniotic Fluid Description: Clear Placental Delivery Description: Spontaneous Placenta Disposition: [facility] Cord Vessel Description: 3 Vessels Cord Entanglement: None A Gender: Male (1 minute): 9 (5 minute): 9 Delayed Cord Clamping: Yes Post Vaginal Delivery Medications Given After Delivery: IM Pitocin Episiotomy Description: None Laceration: None Complication Complications: None
[2023-05-17 06:08] LABS: Syphilis Antibodies Non-reactive
[2023-05-17] MEDS: 0.9% Saline Lock 10 ML Syringe IV (08:17)
[2023-05-17] MEDS: Ibuprofen 600 MG Tablet PO (14:58)
[2023-05-17] MEDS: Influenza Virus Vac Quad 23-24 60 MCG/0.5 ML SYRINGE IM (17:54)
[2023-05-17] MEDS: Acetaminophen 500 MG Tablet 1000 MG PO (19:53)
[2023-05-18 03:27] VITALS: BP 129/72; PULSE 70; PULSE 71; PULSE 72; RESP 15; TEMP 37; O2SAT 96; O2SAT 97
--- NOTE | 2023-05-18 07:21 | PN_ITS ---
Subjective Subjective patient seen at bedside, doing well. Patient reports good pain control. lochia mild. Objective Data Objective Data Vital Signs: Vital Signs Temp Pulse Resp BP Pulse Ox O2 Del Method 98.6 F 72 15 129/72 H 96 Room Air 05/18/23 03:27 05/18/23 03:27 05/18/23 03:27 05/18/23 03:27 05/18/23 03:27 05/18/23 03:27 Oxygen Delivery Method Room Air Weight: 72.8 kg Body Mass Index (BMI) 26.6 Intake & Output: Intake and Output for Last 24 Hours 05/16/23 05/17/23 05/18/23 23:59 23:59 23:59 Intake Total 687.08 / 687.08 Output Total 1700 / 1700 Balance -1012.92 / -1012.92 Lab / Micro Data 05/17/23 05:00 Physical Exam Const alert and oriented x3 General Appearance: cooperative HEENT normocephalic Neck General: normal visual inspection GI soft to palpation and non-distended GI Narrative: Fundus firm Extremity normal to inspection and no calf tenderness Skin no rashes or lesions noted Neuro oriented x3 and CN's II-XII intact bilaterally Psych mental status grossly normal Assessment & Plan Assessment/Plan (1) Vaginal delivery: PLAN: Plan PPD#1 , Doing well Routine care pain mgmt ambulation dc home Capacity Legal [employer] Reflex Medical hold order details:: IF a medical hold is selected below, a suggested order for a MEDICAL HOLD will reflex upon signing the document. Next of kin: [place] law dictates a PRIORITY LIST for identifying legal decision-maker/legal next of kin in the following order (LNOK): 1st: The patient?s legal guardian, if any 2nd: The patient's spouse (if status is questionable, consult Risk Management) 3rd: The patient?s adult child(amalia) (majority, if multiple children) 4th: The patient?s parents 5th: The patient?s adult siblings (majority, if multiple children siblings)
--- NOTE | 2023-05-18 07:22 | DCINST_ITS ---
Discharge Instructions Diet Discharge Diet: No restrictions Activity May resume sexual activity in: 6-8 weeks Dressing / Incision Call your doctor if you observe: Fever of 101 or Higher, Inability to urinate, Using more than 1 pad per hour and Uncontrolled pain Follow Up Care Please Follow Up With: Abi Shankar MD When: 1-2 weeks post and again at 6 weeks post . [phone] Test Results: Test results from this visit will be discussed in further detail at your follow- up appointment, if applicable. Discharge Plan Admission Admit Date/Time: 05/17/23 04:14 Attending Provider: Zandra Flores Primary Care Provider: Care Physician,Deja Primary Discharge Orders/Prescriptions Prescriptions: New acetaminophen 500 mg Tablet 1,000 mg PO Q6H PRN PRN (Reason: Pain 1-10 Or Fever) Qty: 0 0RF ibuprofen 600 mg Tablet 600 mg PO Q6H PRN PRN (Reason: Pain Score 1-3) Qty: 0 0RF Continued + DHA 28 mg iron- 975 mcg-200 mg Combo Pack 1 pkg PO DAILY ferrous sulfate [iron] 325 mg (65 mg iron) tablet 325 mg PO DAILY Referrals / Follow Up: Care Physician,No Primary [Primary Care Provider] - Disposition Disposition (needs filled in before D/C Order can be placed): Home, Self Care
[2023-05-18 07:45] VITALS: BP 115/78; PULSE 76; RESP 14; TEMP 36.9
[2023-05-18 11:32] LABS: Absolute Lymphocyte Count 1.88 X10^3/uL (0.83-4.51); Absolute Neutrophil Count 8.5 X10^3/uL (2.0-7.7); Basophil# 0.03 X10^3/uL; Basophil% 0.3 % (0-1); Eosinophils% 0.9 % (0-5); Hematocrit 35.1 % (37-47); Hemoglobin 11.9 g/dL (12.0-15.0); Lymphocyte # 1.88 X10^3/ul (0.83-4.51); Lymphocyte % 16.7 % (19-41); Mean Corp Hgb Conc 33.9 g/dL (32-36); Mean Corpuscular Hgb 31.8 pg (27.0-32.0); Mean Corpuscular Volume 93.9 fL (81-99); Mean Platelet Vol. 10.5 fl (6.2-12.0); Monocyte# 0.73 X10^3/uL; Monocyte% 6.5 % (0-10); NRBC Flagged by Analyzer 0 % (0-5); Neutrophil % 75.2 % (47-70); Platelet Count 168 K/mm3 (150-450); RBC Distribution Width CV 13.2 % (11.6-14.6); RBC Distribution Width SD 45.5 fl (35.1-43.9); Red Blood Count 3.74 M/mm3 (4.2-5.4); White Blood Count 11.3 K/mm3 (4.4-11.0)
[2023-05-18 14:23] VITALS: BP 117/74; PULSE 90; RESP 16; TEMP 36.5
[2023-05-18 16:31] VITALS: BP 117/74; PULSE 90; RESP 16; TEMP 36.5
--- NOTE | 2023-06-06 10:58 | NURSING ---
Delivering provider added to the delivery record
== END 2023-05-18 17:04 | disposition home or self-care (01) | DRG 807 ==
PROVIDERS: Admitting Provider Advanced Practice Midwife; Referring Provider Advanced Practice Midwife; Visit Provider Advanced Practice Midwife
DX: O62.3 Precipitate labor (principal); Z37.0 Single live birth; O26.23 Pregnancy care for patient with recurrent pregnancy loss, third trimester; D64.9 Anemia, unspecified; O99.02 Anemia complicating childbirth; Z3A.39 39 weeks gestation of pregnancy
CPT/HCPCS: 59025; 59050; 85025; 86780; 86850; 86900; 86901; 99221; J7120; 90686; A4216; G0378